=== PATIENT | female | born 1965 | race Two or more races ===

== ENCOUNTER → 2024-01-02 | Day surgery (SDC) | payer OTHER ==
[~2024-01-02] MED LIST: DIPHENHYDRAMINE HCL 50 MG/ML VIAL 1ML IV ONE; MIDAZOLAM HCL 2 MG/2 ML VIAL IV ONE; ONDANSETRON HCL 2 MG/ML VIAL IV ONE; fentaNYL CITRATE 50 MCG/ML AMPUL IV PUSH ONE
== END | disposition home or self-care (01) ==
LOC: ADM 12-31 14:15 → AMB-ENDOS 08:09
PROVIDERS: ATTEND Colon & Rectal Surgery
DX: K63.5 Polyp of colon (principal); R10.31 Right lower quadrant pain; Z88.6 Allergy status to analgesic agent; Z88.1 Allergy status to other antibiotic agents